=== PATIENT | male | born 1975 | race Caucasian/White ===

== ENCOUNTER 2019-08-16 14:58 | Emergency (ER) | payer MEDICAID ==
[~2019-08-16] VITALS: Ht 172.7 cm; Wt 93.4 kg
[2019-08-16 15:16] VITALS: Ht 172.7 cm; Wt 93.4 kg
[2019-08-16 16:50] VITALS: BP 140/100
== END 2019-08-16 16:50 | disposition home or self-care (01) ==
LOC: ED 14:58
DX: J98.01 Acute bronchospasm (principal); R42 Dizziness and giddiness; E11.9 Type 2 diabetes mellitus without complications; F17.210 Nicotine dependence, cigarettes, uncomplicated; E78.00 Pure hypercholesterolemia, unspecified; R19.7 Diarrhea, unspecified
CPT/HCPCS: 82962; 99406